=== PATIENT | female | born 1950 | race Asian ===

== ENCOUNTER 2018-10-14 12:07 | Emergency (ER) | payer OTHER ==
[2018-10-14 12:12] VITALS: TEMP 97.7; BMI 27.3
[2018-10-14] MEDS ORDERED: SODIUM CHLORIDE 1,000 ML IV STA (13:09)
[2018-10-14] MEDS ORDERED: ACETAMINOPHEN 1000 MG/100 ML VIAL (NON FORMULARY) IVPB ONE (13:10)
--- NOTE | 2018-10-14 13:15 | PDOC ---
History of Present Illness - General Chief Complaint: Pain, Acute Stated Complaint: PCP SENT Time Seen by Provider: 10/14/18 12:53 History Source: Patient Exam Limitations: No Limitations - History of Present Illness Initial Comments: 10/14/18 13:16 Patient is a 67-year-old female with past medical history of diabetes, who presents to the emergency department today for left lower quadrant pain for one day. Patient states she saw her primary care doctor yesterday who recommended coming to the emergency department to rule out diverticulitis. Patient admits to nausea but no vomiting. She states that her bowel movements have been normal and denies blood in the stool or melena. She states that the pain increases with deep breaths. Denies fevers, chills, shortness of breath, difficulty breathing, vomiting, diarrhea, frequency, urgency and hematuria. Past History - Travel Traveled outside of the country in the last 30 days: No Close contact w/someone who was outside of country & ill: No - Past Medical History Allergies/Adverse Reactions: Allergies Allergy/AdvReac Type Severity Reaction Status Date / Time No Known Drug Allergies Allergy Verified 10/14/18 12:10 Home Medications: Ambulatory Orders FA/Mv,Ca,Iron,Min/Lycopene/Lut [Centrum Tablet] 1 tab PO DAILY #0 tablet Amlodipine Besylate/Benazepril [Lotrel 5-10 mg Capsule] 1 each PO DAILY metFORMIN HCL [Metformin HCl] 500 mg PO DAILY 10/14/18 Asthma: Yes COPD: No Diabetes: Yes HTN: Yes - Suicide/Smoking/Psychosocial Hx Smoking Status: No Smoking History: Never smoked Have you smoked in the past 12 months: No Number of Cigarettes Smoked Daily: 0 Hx Alcohol Use: No Drug/Substance Use Hx: No Review of Systems - Review of Systems Able to Perform ROS?: Yes Comments:: 10/14/18 13:08 CONSTITUTIONAL: Absent: fever, chills, diaphoresis, generalized weakness, malaise, loss of appetite HEENT: Absent: rhinorrhea, nasal congestion, throat pain, throat swelling, difficulty swallowing, mouth swelling, ear pain, eye pain, visual Changes CARDIOVASCULAR: Absent: chest pain, loss of consciousness, palpitations, irregular heart rate, peripheral edema RESPIRATORY: Absent: cough, shortness of breath, dyspnea with exertion, orthopnea, wheezing, stridor, hemoptysis GASTROINTESTINAL: Present: LLQ pain Absent: abdominal distension, nausea, vomiting, diarrhea, constipation, melena, hematochezia GENITOURINARY: Absent: dysuria, frequency, urgency, hesitancy, hematuria, flank pain, genital pain MUSCULOSKELETAL: Absent: myalgia, arthralgia, joint swelling SKIN: Absent: rash, itching, pallor HEMATOLOGIC/IMMUNOLOGIC: Absent: easy bleeding, easy bruising, lymphadenopathy, frequent infections ENDOCRINE: Absent: unexplained weight gain, unexplained weight loss, heat intolerance, cold intolerance NEUROLOGIC: Absent: headache, focal weakness or paresthesias, dizziness, unsteady gait, seizure, mental status changes, bladder or bowel incontinence PSYCHIATRIC: Absent: anxiety, depression, suicidal or homicidal ideation, hallucinations. Is the patient limited [place] proficient: No *Physical Exam - Vital Signs Last Vital Signs Temp Pulse Resp BP Pulse Ox 97.7 F 90 18 169/87 100 10/14/18 12:11 10/14/18 12:11 10/14/18 12:11 10/14/18 12:11 10/14/18 12:11 - Physical Exam Comments: 10/14/18 13:08 GENERAL: Well developed, well nourished. Awake and alert. No acute distress. HEENT: Normocephalic, atraumatic. PERRLA, EOMI. No conjunctival pallor. Sclera are non- icteric. Moist mucous membranes. Oropharynx is clear. NECK: Supple. Full ROM. No JVD. Carotid pulses 2+ and symmetric, without bruits. No thyromegaly. No lymphadenopathy. CARDIOVASCULAR: Regular rate and rhythm. No murmurs, rubs, or gallops. Distal pulses are 2+ and symmetric. PULMONARY: No evidence of respiratory distress. Lungs clear to auscultation bilaterally. No wheezing, rales or rhonchi. ABDOMINAL: TTP of the LLQ with rebound. Soft. Non-distended. No organomegaly. Normoactive bowel sounds. MUSCULOSKELETAL Normal range of motion at all joints. No bony deformities or tenderness. No CVA tenderness. EXTREMITIES: No cyanosis. No clubbing. No edema. No calf tenderness. SKIN: Warm and dry. Normal capillary refill. No rashes. No jaundice. NEUROLOGICAL: Alert, awake, appropriate. Cranial nerves 2-12 intact. No deficits to light touch and temperature in face, upper extremities and lower extremities. No motor deficits in the in face, upper extremities and lower extremities. Normoreflexic in the upper and lower extremities. Normal speech. Toes are down- going bilaterally. Gait is normal without ataxia. PSYCHIATRIC: Cooperative. Good eye contact. Appropriate mood and affect. Moderate Sedation - Procedure Monitoring Vital Signs: Procedure Monitoring Vital Signs Temperature 97.7 F 10/14/18 12:11 Pulse Rate 90 10/14/18 12:11 Respiratory Rate 18 10/14/18 12:11 Blood Pressure 169/87 10/14/18 12:11 O2 Sat by Pulse Oximetry (%) 100 10/14/18 12:11 ED Treatment Course - LABORATORY CBC & Chemistry Diagram: 10/14/18 14:06 10/14/18 14:06 Medical Decision Making - Medical Decision Making 10/14/18 18:53 Patient is a 67-year-old female who presents to the emergency department today for 1 day of left lower quadrant pain and constipation. Differential diagnosis includes but is not limited to diverticulitis, diverticulosis, constipation. On exam patient with significant left lower quadrant tenderness as well as rebound. Labs, urine ordered. Patient also given off her mouth and fluids. No leukocytosis or shift. H&H is stable. Electrolytes appear normal. Urine is with 2+ blood but otherwise clean. CTAP ordered, pending results at this time. Repeat abdominal exam still with left lower quadrant tenderness despite normal labs. Morphine ordered at this time. Will need reevaluation of her abdominal pain Sign out given to Leena Hobson [employer]. Patient is pending disposition based on her CAT scan.
[2018-10-14 14:19] LABS: BASO % 1.2 % (0-2.0); EOS % 1.6 % (0-4.5); HEMATOCRIT 36.8 % (32.4-45.2); HEMOGLOBIN 12.6 GM/dL (10.7-15.3); LYMPH % 27.7 % (8-40); MCH 27.6 pg (25.7-33.7); MCHC 34.3 g/dl (32.0-36.0); MEAN CELL VOLUME 80.4 fl (80-96); MEAN PLT VOLUME 8.2 fl (7.5-11.1); MONO % 5.6 % (3.8-10.2); NEUT % 63.9 % (42.8-82.8); PLATELET COUNT 353 K/MM3 (134-434); RBC 4.58 M/mm3 (3.60-5.2); WHITE BLOOD COUNT 8.8 K/mm3 (4.0-10.0)
[2018-10-14] MEDS ORDERED: ACETAMINOPHEN INJECTION 100 ML IVPB ONE (14:24)
[2018-10-14 14:32] LABS: INR 1.03 (0.83-1.09); PROTHROMBIN TIME (PATIENT) 12.1 SEC (9.7-13.0)
[2018-10-14 14:51] LABS: ALBUMIN 4.1 g/dl (3.4-5.0); ALK PHOS 109 U/L (45-117); ANION GAP 10 MMOL/L (8-16); BILIRUBIN,TOTAL 0.4 mg/dL (0.2-1); BLOOD UREA NITROGEN 15 mg/dL (7-18); CALCIUM 9.5 mg/dL (8.5-10.1); CHLORIDE 103 mmol/L (98-107); CO2 25 mmol/L (21-32); CREATININE 0.8 mg/dL (0.55-1.3); GLUCOSE,RANDOM 98 mg/dL (74-106); POTASSIUM 4.3 mmol/L (3.5-5.1); SGOT/AST 21 U/L (15-37); SGPT/ALT 26 U/L (13-61); SODIUM 139 mmol/L (136-145)
--- NOTE | 2018-10-14 15:52 | EKG ---
Test Reason : Blood Pressure : / mmHG Vent. Rate : 068 BPM Atrial Rate : 068 BPM P-R Int : 160 ms QRS Dur : 086 ms QT Int : 410 ms P-R-T Axes : 056 -34 019 degrees QTc Int : 435 ms NORMAL SINUS RHYTHM LEFT AXIS DEVIATION ABNORMAL ECG WHEN COMPARED WITH ECG OF 19-FEB-2013 15:39, NO SIGNIFICANT CHANGE WAS FOUND Confirmed by JOSSELYN HICKS MD ([id number]) on 10/14/2018 3:52:05 PM Referred By: Confirmed By:JOSSELYN HICKS MD
[2018-10-14 17:41] LABS: URINE APPEARANCE CLEAR; URINE BILIRUBIN NEGATIVE (<2.0 mg/dL); URINE COLOR STRAW; URINE GLUCOSE (UA) NEGATIVE (NEGATIVE); URINE KETONE NEGATIVE (NEGATIVE); URINE LEUK ESTERASE NEGATIVE (NEGATIVE); URINE NITRITE NEGATIVE (NEGATIVE); URINE PROTEIN NEGATIVE (NEGATIVE); URINE UROBILINOGEN NEGATIVE mg/dL (0.2-1.0)
[2018-10-14 18:04] LABS: EPI CELLS RARE /HPF (FEW); URINE MUCUS RARE
[2018-10-14] MEDS ORDERED: morphine CARPU-JECT 2 MG/1 ML DISP.SYRIN IVPUSH ONE (18:50)
[2018-10-14] MEDS ORDERED: MORPHINE SULFATE 2 MG/ML VIAL ONE (19:28)
--- NOTE | 2018-10-14 19:48 | PDOC ---
*Physical Exam - Vital Signs Last Vital Signs Temp Pulse Resp BP Pulse Ox 97.7 F 90 18 169/87 100 10/14/18 12:11 10/14/18 12:11 10/14/18 12:11 10/14/18 12:11 10/14/18 12:11 - Physical Exam General Appearance: Yes: Appropriately Dressed Gastrointestinal/Abdominal: positive: Normal Bowel Sounds, Soft, Other (mild LLQ tenderness) ED Treatment Course - LABORATORY CBC & Chemistry Diagram: 10/14/18 14:06 10/14/18 14:06 - ADDITIONAL ORDERS Additional order review: Laboratory Results 10/14/18 10/14/18 10/14/18 14:06 14:06 13:09 PT with INR 12.10 INR 1.03 Sodium 139 Potassium 4.3 Chloride 103 Carbon Dioxide 25 Anion Gap 10 BUN 15 Creatinine 0.8 Creat Clearance w eGFR > 60 Random Glucose 98 Calcium 9.5 Total Bilirubin 0.4 AST 21 ALT 26 Alkaline Phosphatase 109 Total Protein 8.0 Albumin 4.1 Urine Color Straw Urine Appearance Clear Urine pH 5.0 Ur Specific [place] 1.009 L Urine Protein Negative Urine Glucose (UA) Negative Urine Ketones Negative Urine Blood 2+ H Urine Nitrite Negative Urine Bilirubin Negative Urine Urobilinogen Negative Ur Leukocyte Esterase Negative Urine WBC (Auto) 1 Urine RBC (Auto) <1 Ur Epithelial Cells Rare Urine Mucus Rare 10/14/18 14:06 RBC 4.58 MCV 80.4 MCHC 34.3 RDW 14.0 MPV 8.2 Neutrophils % 63.9 Lymphocytes % 27.7 D Monocytes % 5.6 Eosinophils % 1.6 Basophils % 1.2 - Medications Given in the ED: ED Medications Discontinued Medications Generic Name Dose Route Start Last Admin Trade Name Anne PRN Reason Stop Dose Admin Acetaminophen 1,000 mg 10/14/18 13:10 10/14/18 14:33 Ofirmev Injection - IVPB 10/14/18 13:11 1,000 mg ONCE ONE Administration Sodium Chloride 1,000 mls @ 1,000 mls/hr 10/14/18 13:09 10/14/18 14:33 Normal Saline - IV 10/14/18 14:08 1,000 mls/hr ASDIR STA Administration Morphine Sulfate 2 mg 10/14/18 18:50 10/14/18 19:32 Morphine Injection - IVPUSH 10/14/18 18:51 2 mg ONCE ONE Administration Medical Decision Making - Medical Decision Making 10/14/18 19:43 patient reports that she has been feeling constipated. took metamucil today with one episode of hard BM today. feeling hungry now. CTAp negative seen diverticulosis 10/14/18 22:[address] Higgins reviewed CTAP. patient to follow up with PCP *DC/Admit/Observation/Transfer Diagnosis at time of Disposition: LLQ abdominal pain Constipation Qualifiers: Constipation type: unspecified constipation type Qualified Code(s): K59.00 - Constipation, unspecified - Discharge Dispostion Disposition: HOME - Prescriptions Prescriptions: Polyethylene Glycol 3350 [Miralax (For Daily Use) -] 17 gm PO DAILY #1 bottle - Referrals - Patient Instructions Printed Discharge Instructions: Constipation Additional Instructions: drink plenty of fluids take miralax as prescribed follow up with your doctor as soon as possible. - Post Discharge Activity
[2018-10-14 20:03] VITALS: BP 153/88; PULSE 66
== END 2018-10-14 20:03 | disposition home or self-care (01) ==
LOC: JER 12:07
PROC: 3E033NZ Introduction of Analgesics, Hypnotics, Sedatives into Peripheral Vein, Percutaneous Approach (ICD-10-PCS; principal; 2018-10-14)
PROC: 3E0337Z Introduction of Electrolytic and Water Balance Substance into Peripheral Vein, Percutaneous Approach (ICD-10-PCS; 2018-10-14)
DX: K59.00 Constipation, unspecified (principal)
CPT/HCPCS: 36415; 74177-TC; 80053; 81003; 81015; 85025; 85610; 87086; 93005; 93010; 99283-25; J0131; J7030

== ENCOUNTER 2021-08-21 04:31 | Day surgery (SDC) | payer OTHER ==
[2021-08-19 09:22] VITALS: BMI 27.4
[2021-08-21] MEDS ORDERED: PROPOFOL 20 ML ONE (09:41)
[2021-08-21] MEDS ORDERED: LIDOCAINE HCL/PF 2% SDV 5ML VIAL ONE (09:41)
[2021-08-21] MEDS ORDERED: DEXAMETHASONE SOD PHOSPHATE 4 MG/1 ML VIAL ONE (09:41)
[2021-08-21] MEDS ORDERED: LIDOCAINE 1%/EPI 1:100000 (20 ML MULTI DOSE VIAL) ONE (09:42)
[2021-08-21] MEDS ORDERED: BUPIVACAINE HCL/PF 0.5% (5MG/ML) 10 ML VIAL ONE (09:43)
[2021-08-21] MEDS ORDERED: LIDOCAINE 1%/EPI 1:100000 (50 ML MULTI DOSE VIAL) PNB ONE (10:03)
[2021-08-21] MEDS ORDERED: BUPIVACAINE HCL/PF 0.5% (5 MG/ML) 30 ML VIAL IJ ONE (10:03)
[2021-08-21] MEDS ORDERED: ceFAZolin SODIUM 1 GM VIAL ONE (10:04)
[2021-08-21] MEDS ORDERED: ceFAZolin SODIUM 1 GM VIAL IVPB ONE (10:04)
[2021-08-21] MEDS ORDERED: ONDANSETRON 4 MG/2 ML VIAL IVPUSH PRN (10:14)
[2021-08-21] MEDS ORDERED: oxyCODONE HCL 5 MG TABLET PO PRN (10:14)
[2021-08-21] MEDS ORDERED: LACTATED RINGERS SOLUTION 1,000 ML IV SCH (10:15)
[2021-08-21] MEDS ORDERED: oxyCODONE HCL 5 MG TABLET PO ONE (12:00)
[2021-08-21] MEDS ORDERED: oxyCODONE HCL 5 MG TABLET ONE (12:56)
[2021-08-21 15:47] VITALS: BP 142/78; PULSE 83; TEMP 98.2
== END 2021-08-21 15:25 | disposition home or self-care (01) ==
LOC: JASU-SURG 04:31
PROVIDERS: ATTEND Orthopaedic Surgery
PROC: 0SBD4ZZ Excision of Left Knee Joint, Percutaneous Endoscopic Approach (ICD-10-PCS; 2021-08-21)
PROC: 0SBD4ZZ Excision of Left Knee Joint, Percutaneous Endoscopic Approach (ICD-10-PCS; principal; 2021-08-21 09:30)
DX: S83.232A Complex tear of medial meniscus, current injury, left knee, initial encounter (principal); S83.282A Other tear of lateral meniscus, current injury, left knee, initial encounter; X58.XXXA Exposure to other specified factors, initial encounter; Y93.9 Activity, unspecified; Y92.9 Unspecified place or not applicable; Y99.9 Unspecified external cause status
CPT/HCPCS: 82962; 94760

== ENCOUNTER → 2022-05-07 | Day surgery (SDC) | payer OTHER | END | disposition home or self-care (01) | LOC: JRADIR 09:23 | PROVIDERS: ATTEND Internal Medicine Endocrinology, Diabetes & Metabolism | PROC: 0GBG3ZX Excision of Left Thyroid Gland Lobe, Percutaneous Approach, Diagnostic (ICD-10-PCS; principal; 2022-05-07) | DX: E04.1 Nontoxic single thyroid nodule (principal) | CPT/HCPCS: 10021; 76942; 88173; 88305-TC ==